=== PATIENT | male | born 1960 | race Caucasian/White ===

== ENCOUNTER → 2023-02-06 15:09 | Outpatient (BNVA) | payer OTHER, SELFPAY | PROVIDERS: PCP Internal Medicine; Visit Provider Urology | DX: N52.9 Male erectile dysfunction, unspecified (principal); E29.1 Testicular hypofunction; G47.33 Obstructive sleep apnea (adult) (pediatric); F43.10 Post-traumatic stress disorder, unspecified | CPT/HCPCS: 51798; 99202 ==

== ENCOUNTER 2023-03-20 15:20 | Outpatient (AMB) | payer OTHER, SELFPAY ==
--- NOTE | 2023-03-20 15:27 | A.OFFVIS_ITS ---
Intake Intake Visit Reasons: cysto Intake Note: Patient is present for Cystoscopy Urology Med: Finasteride, Sildenafil Antibiotic Allergy:none Blood Thinner: none Allergies No Known Allergies Allergy (Verified 03/20/23 15:44) HPI HPI Comments History of Present Illness Details Francisco is a 62-year-old male who presents to the office for cystoscopy procedure. LV?02/06/23-- Francisco is a 62-year-old male who presents to the office as a new patient evaluation for dysuria, difficulty urinating, and erectile dysfunction. He states that he has already been started on Proscar and tamsulosin for urinary symptoms, nocturia. CoMorbidities--Sleep Apnea, PTSD He was taking Viagra and has taken an injectable medication into the penile corpora for allowing him to achieve erections. I asked if the erections are lasting for more than 4 hours and he stated that it lasts for one hour. He was counselled if the erections are lasting for more than 4 hours then he needs to visit the ER. Evaluation today: Blood: negative, leukocytes: negative. Bladder scan PVR: 34 mL. I have reviewed consult notes sent from [place]. Bladder US--01/14/23-- Bladder wall thickening, irregular. prostate nodular median lobe abutting bladder neck. PSA results reviewed-- 2.62. Testosterone results reviewed--244.58 (low). Will redo a panel of blood work including testosterone levels and other hormones. The patient will follow-up with Dr. Anguiano for hypogonadism. Follow up with me for cysto and further evaluation of bladder. Plan:Blood work panel including LH, prolactin, testosterone free/total, FSH, was ordererd. Follow-up in [address] Anguiano for hypogonadism. Follow-up in 4- 6 weeks at the office for cysto. 03/20/23-- The patient is scheduled for cystoscopy bladder US from 01/14/23 there were findings of irregular bladder wall thickening. The patient denies history of cigarette smoking. The patient is adhering to tamsulosin and Proscar therapy. Mentions that he is emptying better. Evaluation today-- Blood: negative, leukocytes: negative. Cystoscopy findings-- trilobar enlargement with a high median lobe. Consideration for prostate procedure was discussed and he is going to be refereed to Dr. Anguiano for further evaluation for erectile dysfunction after getting repeat blood work as well as evaluation for GreenLight Laser. Plan: Referred to Dr Anguiano. Testosterone, Free/Total were ordered. [facility] Medical History Flat foot Hiatal hernia PTSD (post-traumatic stress disorder) Tinnitus Office Procedures Cystoscopy Consent Discussed risk and benefit or proposed procedure with the patient. Information consent for procedure given to the patient. Discussed technical aspects, risks, benefits and alternatives in full. Addressed all of the patient's questions and concerns regarding the procedure. The patient demonstrated knowledge and understanding. They wish to proceed with this procedure. Preparation The patient was prepped in the usual manner. A band saw operator was present and in the room. Genitalia was prepped with betadine solution in a sterile manner. Lidocaine Jelly 2% was placed into the urethra and 16Fr flexible Olympus cystoscope was inserted into the meatus after adequate lubrication. Procedure Time out per protocol performed. Bladder Inspection Bladder Inspection: The bladder was inspected in its entirety with utilization retroflexion displaying: Tumor(s): none Trabeculation: mild to moderate Mucosal Erthema: N/A Orifices: normal shape and position Urethra: normal Cystoscopy findings: trilobar enlargement with a high median lobe. bulbous u rethra WNL, no suspicious bladder lesions visualized [id number] Procedure code (CPT) selection complete Office Meds lidocaine HCl Performing Provider: Shell Rashid MD Administered by: Michelle Higgins RN on 03/20/23 15:47 Dose Route Admin Location Lot Number Expiration Date NDC Topography Technician 10 mL intra-urethral naproxen Performing Provider: Shell Rashid MD Administered by: Michelle Higgins RN on 03/20/23 15:47 Dose Route Admin Location Lot Number Expiration Date NDC Topography Technician 500 mg PO ciprofloxacin HCl Performing Provider: Shell Rashid MD Administered by: Michelle Higgins RN on 03/20/23 15:47 Dose Route Admin Location Lot Number Expiration Date NDC Topography Technician 500 mg PO Results AMB Urinalysis, Automated UA Leukoctes 0 Mendy/uL Last Edit by KIRAN Tejeda on 03/20/23 15:45 UA Nitrite Negative Last Edit by KIRAN Tejeda on 03/20/23 15:45 UA Urobilinogen 0.2 mg/dL Last Edit by Tash Dudley, RMA on 03/20/23 15:4 5 UA Protein 0 mg/dL Last Edit by Tash Dudley, RMA on 03/20/23 15:45 UA pH 5.5 Last Edit by Tash Dudley, RMA on 03/20/23 15:45 UA Blood 0 Felice/uL Last Edit by Tash Dudley, RMA on 03/20/23 15:45 UA Specific [place] 1.030 Last Edit by Tash Dudely, RMA on 03/20/23 15: 45 UA Ketone Negative Last Edit by Tash Dudley, RMA on 03/20/23 15:45 UA Bilirubin 0 mg/dL Last Edit by Tash Dudley, RMA on 03/20/23 15:45 UA Glucose 0 mg/dL Last Edit by Tash Dudley, RMA on 03/20/23 15:45 Results Reviewed Results Reviewed: Laboratory Last Values Urine pH (Auto) 5.5 03/20/23 15:38 Specific [place] (Auto) 1.030 03/20/23 15:38 Urine Protein (Auto) 0 mg/dL 03/20/23 15:38 Glucose (UA)(Auto) 0 mg/dL 03/20/23 15:38 Urine Ketones (Auto) Negative 03/20/23 15:38 Urine Blood (Auto) 0 Felice/uL 03/20/23 15:38 Urine Nitrite (Auto) Negative 03/20/23 15:38 Urine Bilirubin (Auto) 0 mg/dL 03/20/23 15:38 Urine Urobilinogen (Auto) 0.2 mg/dL 03/20/23 15:38 Leukocyte Esterase (Auto) 0 Mendy/uL 03/20/23 15:38 Assessment & Plan Assessment & Plan (1) Erectile dysfunction: Code(s): N52.9 - Male erectile dysfunction, unspecified (2) Hypogonadism, male: Code(s): E29.1 - Testicular hypofunction Plan Referred to Dr Anguiano. Testosterone, Free/Total were ordered. Orders: Orders Basic Metabolic Panel Fasting 03/20/23 E29.1 - Testicular hypofunction Testosterone, Free/Total 03/20/23 E29.1 - Testicular hypofunction, N52.9 - Male erectile dysfunction, unspecified, N40.1 - Benign prostatic hyperplasia with lower urinary tract symptoms Follicle Stimulating Hormone 03/20/23 E29.1 - Testicular hypofunction Lutenizing Hormone 03/20/23 E29.1 - Testicular hypofunction Prolactin 03/20/23 E29.1 - Testicular hypofunction AMB Cystoscopy 03/20/23 N32.89 - Other specified disorders of bladder AMB Urinalysis Automated 03/20/23 Z13.9 - Encounter for screening, unspecified Patient Instructions: The patient had an opportunity to ask questions regarding treatment plan. All questions were answered. Imaging, Laboratory studies and physical exam results were discussed and reviewed in detail. No major barriers to understanding were identified. The patient expressed understanding and agreement with the above t reatment plan. The patient is aware they should contact our office by phone for worsening of their current condition or the appearance of new symptoms. Compliance is encouraged with any medications and followup testing that is ordered. It is a privilege to be allowed the opportunity to participate in the urologic care of your patient. If you have any questions or concerns regarding treatment for the above conditions please do not hesitate to contact me. The office telephone contact is [phone]. This note is constructed in part using voice recognition software. While every effort has been made to ensure accuracy delivery representative errors may have been included. Yours sincerely, Shell Rashid MD Coding Level of Care Code Procedure Only Diagnoses Erectile dysfunction N52.9 Hypogonadism, male E29.1 CPT Codes Cystoscopy - CPT: 39462-Dmspqkutlk ([id number])
== END 2023-03-20 16:14 | disposition home or self-care (01) ==
LOC: HO.HUSH 15:20
PROVIDERS: PCP Internal Medicine; Visit Provider Urology
DX: R30.0 Dysuria (principal); R39.198 Other difficulties with micturition; E29.1 Testicular hypofunction
CPT/HCPCS: 52000

== ENCOUNTER → 2023-03-20 15:20 | Outpatient (BNVA) | payer OTHER, SELFPAY | PROVIDERS: PCP Internal Medicine; Visit Provider Urology | DX: N52.9 Male erectile dysfunction, unspecified (principal); E29.1 Testicular hypofunction | CPT/HCPCS: 52000 ==

== ENCOUNTER 2023-04-05 06:01 | Outpatient (REF) | payer OTHER, SELFPAY ==
[2023-04-05 08:14] LABS: Anion Gap 12 (12-20); Blood Urea Nitrogen 21 mg/dL (9-16); Calcium 9.7 mg/dL (8.4-10.2); Carbon Dioxide 27 mmol/L (22-29); Chloride 105 mmol/L (96-108); Estimated Glomerular Filt Rate > 60; Glucose Fasting 107 mg/dL (60-99); Potassium 4.3 mmol/L (3.3-5.1); Sodium 140 mmol/L (135-145)
[2023-04-06 14:09] LABS: Follicle Stimulating Hormone 7.1 mIU/mL (1.6-8.0); Prolactin 8.2 ng/mL (2.0-18.0)
[2023-04-12 14:23] LABS: Testosterone, Free 89.5 pg/mL (35.0-155.0); Testosterone, Total 484 ng/dL (250-1100)
== END 2023-04-05 06:02 | disposition home or self-care (01) ==
LOC: HO.LAB 06:01
PROVIDERS: Visit Provider Urology
DX: E29.1 Testicular hypofunction (principal); N40.1 Benign prostatic hyperplasia with lower urinary tract symptoms; N52.9 Male erectile dysfunction, unspecified
CPT/HCPCS: 36415; 80048; 83001; 83002; 84146; 84402; 84403

== ENCOUNTER → 2023-04-19 10:48 | Outpatient (BNVA) | payer OTHER, SELFPAY | PROVIDERS: PCP Internal Medicine; Visit Provider Urology | DX: N40.1 Benign prostatic hyperplasia with lower urinary tract symptoms (principal); E29.1 Testicular hypofunction | CPT/HCPCS: 51798; 99212 ==

== ENCOUNTER 2023-07-02 11:39 | Outpatient (AMB) | payer OTHER, SELFPAY ==
--- NOTE | 2023-07-02 11:40 | A.OFFVIS_ITS ---
Intake Intake Visit Reasons: H&P (greenlight 07/15/23) Intake Note: Patient is present for Telephone H&P Update upcoming [facility] 07[facility]15 Urology Med: Finasteride, Sildenafil, Tamsulosin Antibiotic Allergy: None Blood Thinner: None Pharmacy: [facility] Allergies No Known Allergies Allergy (Verified 07/02/23 11:43) HPI HPI Comments History of Present Illness Details Francisco is a pleasant male. He is a patient of Dr. Andre. 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 Prior low testosterone -04/19 484 F 88 Appears to have recovered Lower urinary tract symptoms Progressive Previously on combination therapy with Proscar and tamsulosin Weakness of stream 01/17 bladder ultrasound with bladder wall thickening Cystoscopy with trilobar enlargement in large median lobe Recommendation for GreenLight laser [facility] Medical History Flat foot Hiatal hernia PTSD (post-traumatic stress disorder) Tinnitus Review of Systems Const All systems reviewed & are unremarkable except as noted in HPI and below Reports no additional complaints Resp Reports no additional complaints GI Reports no additional complaints Reports as per HPI Musc Reports no additional complaints Physical Exam Telemedicine evaluation Appropriate responses Regular breathing rate and rhythm HEENT Head: Yes normal to inspection Ears: hearing grossly normal bilaterally Eyes General: appearance normal, both eyes and all related structures Neck Neck: Yes normal visual inspection Chest Chest palpation & inspection: normal inspection of the chest Resp Effort & Inspection: normal respiratory effort and able to speak in complete sentences Assessment & Plan Assessment & Plan (1) Erectile disorder: Code(s): N52.9 - Male erectile dysfunction, unspecified (2) BPH loc w urin obs/LUTS: Code(s): N40.1 - Benign prostatic hyperplasia with lower urinary tract symptoms Plan Planned GreenLight laser Risks, benefits and alternatives to therapy were discussed. These include but are not limited to infection, bleeding, damage to local organs and tissues, need for further interventions. Anesthetic risks regarding cardiac arrhythmia, blood clots, and potential mortality were discussed. The patient understands the typical recovery time and the outpatient nature of the procedure. After consideration of these risks the patient gives full informed consent and they wish to move ahead with the procedure. Patient Instructions: Imaging studies, laboratory and physical exam results were discussed and reviewed in detail. No major barriers to patient understanding were identified. An opportunity to ask questions regarding the treatment plan was provided. All questions were answered. The patient expressed understanding and agreement with the above treatment plan. The patient is aware they should contact our office by phone for worsening of their current condition or the appearance of new urologic symptoms. Compliance is encouraged with any medications and followup testing that is ordered. It is a privilege to participate in the urologic care of your patient. If you have any questions or concerns regarding treatment for the above conditions, or other urologic issues, please do not hesitate to contact me. The office telephone contact is [phone]. This note is constructed using voice recognition software. While every effort has been made to ensure accuracy swimming pool maintenance supervisor errors may have been included. Yours sincerely, Dr Andrea Anguiano MD, [facility] - Urology Providers of Expert, Compassionate Care for the Genitourinary System Telehealth Telehealth Location of provider rendering services: practice address Location of patient: address on file Patient Identification confirmed using: Name, : Yes Telehealth method: video Patient verbally consented to treatment: Yes Patient verbally consented to billing insurance company: Yes Patient informed of any privacy concerns related to visit: Yes Coding Level of Care Code Tele Est Pt Level 3 (60578) Diagnoses Erectile disorder N52.9 BPH loc w urin obs/LUTS N40.1
== END 2023-07-02 12:15 | disposition home or self-care (01) ==
LOC: HO.HUSH 11:39
PROVIDERS: PCP Internal Medicine; Visit Provider Urology
DX: N52.9 Male erectile dysfunction, unspecified (principal); N40.1 Benign prostatic hyperplasia with lower urinary tract symptoms
CPT/HCPCS: 99213

== ENCOUNTER → 2023-07-02 11:39 | Outpatient (BNVA) | payer OTHER, SELFPAY | PROVIDERS: PCP Internal Medicine; Visit Provider Urology ==

== ENCOUNTER 2023-07-15 07:03 | Day surgery (SDC) | payer OTHER, SELFPAY ==
[2023-07-15] VITALS (7 sets, daily range): BP systolic 121–140; BP diastolic 81–92; PULSE 58–81; RESP 16–18; TEMP 36.1–36.3; O2SAT 95–98; BMI 25.1
[2023-07-15] MEDS: Lactated Ringers 1,000 ML 100 ML IVCONT (08:25)
--- NOTE | 2023-07-15 08:45 | HO.ANESPROP2 ---
HPI - Anesthesia Eval Consult details Narrative: for laser prostate PMFSH Active Problems Active Problems: All Active Problems (Updated 07/10/23 @ 13:48 by Milly Cardona RN) BPH loc w urin obs/LUTS (Acute) Hypogonadism, male (Acute) Erectile disorder (Acute) Past Medical History Medical History Elevated cholesterol Anemia Sleep apnea Low back pain Asthma GERD (gastroesophageal reflux disease) BPH (benign prostatic hyperplasia) Tinnitus Hiatal hernia Flat foot PTSD (post-traumatic stress disorder) Family History Family history of problems with anesthesia: No Surgical History Surgical History Surgical history unknown History of Problems with Anesthesia: No Social History Social History Are you a primary healthcare consultant to a significant other at home: No Do you presently have visiting nurse or other home services: No Patient Tobacco Use Status: Never used Tobacco Have you been hit, kicked, punched, or otherwise hurt by someone within the past year? If so, by whom?: No Are you DNR?: No Advance Directives: No Advance Directives Information Provided: Yes Recently lost weight without trying: No Eating poorly because of decreased appetite: No Nutrition Risks: No Nutritional Risk Poor oral hygiene: No Meds Allergies Allergy/AdvReac Type Severity Reaction Status Date / Time No Known Allergies Allergy Verified 07/02/23 11:43 Active Medications: Current Medications Levofloxacin (Levaquin) 500 mg in 100 mls @ 100 mls/hr IV PREOP ONE Stop: 07/15/23 08:49 Lactated Ringer's (Lr) 1,000 mls @ 100 mls/hr IVCONT .Q10H LETI Last Admin: 07/15/23 08:25 Dose: 100 mls/hr Home Medications Medication Instructions Recorded Confirmed Last Taken Type albuterol sulfate 90 mcg/actuation 1 inh inhalation Q4H PRN Shortness 01/21/23 07/10/23 Unknown History aerosol inhaler Of Breath Or Wheezing polyethylene glycol 3350 17 17 g PO DAILY 01/21/23 Unknown History gram/dose oral powder alprostadil 20 mcg intracavernosal 20 mcg intra-cavernosal ONCE PRN 02/06/23 07/10/23 Unknown History syringe erectile dysfunction carboxymethylcellulose sodium 0.5 1 drp ophthalmic (eye) QID 02/06/23 07/10/23 Unknown History % eye drops in a dropperette ezetimibe 10 mg tablet 10 mg PO DAILY 02/06/23 07/10/23 Unknown History finasteride 5 mg tablet 5 mg PO DAILY 02/06/23 07/10/23 Unknown History fluticasone propionate 50 2 spray intranasal DAILY 02/06/23 07/10/23 Unknown History mcg/actuation nasal spray,suspension (Allergy Relief (fluticasone)) lisinopril 20 2 tab PO DAILY 02/06/23 07/10/23 Unknown History mg-hydrochlorothiazide 12.5 mg tablet omeprazole 20 mg capsule,delayed 20 mg PO DAILY 02/06/23 07/10/23 Unknown History release sildenafil 100 mg tablet 100 mg PO DAILY PRN Erectile 02/06/23 07/10/23 Unknown History Dysfunction tamsulosin 0.4 mg capsule 0.4 mg PO DAILY 02/06/23 Unknown History Exam Exam Date and Time: July 15, 2023 0845 Height,Weight and Vital Signs: Height 5 ft 7 in Weight 72.575 kg Last Vital Signs Temp 96.9 F 07/15/23 08:16 Pulse 71 07/15/23 08:16 Resp 18 07/15/23 08:16 BP 121/81 07/15/23 08:16 Pulse Ox 98 07/15/23 08:16 O2 Del Method Room Air 07/15/23 08:16 Airway Mallampati Class: I TM Dist: >3cm Neck ROM: Full Loose/Missing/Broken Teeth: No Heart: ok Lungs: ok Assessment and Plan Assessment Anesthesia Assessment: Anesthesia Plan Discussed and Chart Reviewed Final Anesthetic Review Family History of Problems with Anesthesia: No History of Problems with Anesthesia: No NPO: Yes ASA Class: II Final Preanesthetic Review: No Changes in Pt Med Stat, Meds/Allgs Chart Reviewed, Consent Obtained/Reviewed and Anes Risks/Benef Reviewed Patient Risk: Intermediate Procedure Risk: Low Anesthetic Plan Anesthetic Plan: GA and Agree w/ Assess. and Plan Disposition: Standard PACU
--- NOTE | 2023-07-15 08:48 | MHC.SHP ---
Pre-Procedural Eval Section A Date of Service: 07/15/23 The patient is an INPATIENT: No Changes since office visit: No Cold of Flu in the past 2 weeks, No New Medical Problems, No Changes in Medication and No Patient answered all questions The History & Physical has been completed within 30 days and I have reviewed it.: Yes Section B Chief Complaint: Benign prostatic hyperplasia with lower urinary Allergies: Allergies Allergy/AdvReac Type Severity Reaction Status Date / Time No Known Allergies Allergy Verified 07/02/23 11:43 Plan I have reviewed the history and physical and performed a pertinent physical examination on my patient. No changes have occurred unless specified. Time Spent With Patient Time: Total time managing care of this patient today ____ minutes.
--- NOTE | 2023-07-15 10:06 | P.OP_ITS ---
Operative Note Operative Note Date of Service: 07/15/23 Narrative: PreOperative Diagnosis: Bladder outlet obstruction Post Operative Diagnosis: Bladder outlet obstruction Procedure: GreenLight Laser Enucleation of the prostate Surgeon: Dr Andrea Anguiano Anesthesia: General History of bladder outlet obstruction. Treated with alpha-tiff and other medications. Still with symptoms. On cystoscopy in office has trilobar prostate. Recommendation for prostate procedure with laser enucleation of prostate. Risks and benefits have been discussed. Focus was placed on development of retrograde ejaculation which is a normal part of this procedure. Procedure: After informed consent was verified the patient was brought to the operating room and placed in a supine position. Anesthesia was administered per protocol. Patient was placed in modified dorsal lithotomy position and prepped and draped in a sterile fashion. Safety pause time-out was confirmed. Antibiotics have been given. A Twenty-four Ukrainian laser cystoscope was inserted per urethra. No abnormalities were found of the anterior and bulbar urethra. The bladder was examined and both ureteric orifices were seen in their normal positions away from the area of interest. Using a GreenLight laser with settings of 80 w incisions were made at the 5 and 7 o'clock position. The incisions were taken down from the bladder neck down to the level of the veru. These were gradually deepened in order to define the lateral aspects of the median lobe area. Once clearly defined they will also extended in the lateral directions in order to create a deep groove. The median lobe was then ablated and enucleated tissue released into the bladder with the laser power increased to 120 W. Once the median lobe area had been cleared attention was directed to the lateral lobes. Starting with the patient's left lateral lobe. First the 05:00 o'clock groove was further developed. This was moved in the lateral direction to undermine the tissue on the lateral side running from the bladder neck to the prostate apex. Focus was then placed on the laser at the 1 o'clock position to developing a secondary groove down to the level of bladder fibers. The creation of a second deep groove defined a segment of intervening tissue similar to a slice of orange. At the apex of the prostate the 2 grooves were linked the us releasing the intervening tissue. This tissue was then removed with a combination of enucleation and ablation working from the apex toward the bladder neck. A similar procedure was repeated on the patient's right-hand side. The only differences being the position of the lateral groove at he 7 'oclock positioin and the secondary groove at the 11 o'clock position, Otherwise the procedure was developed in a mirror fashion. After the majority of tissue had been debulked remnant tissue was ablated with the side fire laser and the curve of the prostate followed up each side wall clearly defining the anterior remnant strip that remained between the 11 and 1 o'clock positions. When this was had been completed debris and pieces of prostate were removed from the bladder with irrigation. Both ureteric orifices were reviewed again in shown to be patent in away from any areas of energy damage. The apical area was reviewed in any stray ooze was controlled. A 22 Ukrainian 30 cc balloon Ley catheter was placed over a stylet into the bladder. Clear efflux was obtained upopn irrigation with a [place] piston syr raquel. 30 cc was placed in the balloon and gentle traction was placed. A snap was used to hold tension on the catheter to control bleeding during patient moved and transported. A drainage bag was placed. Once transportation is complete to the PACU the snap will be removed. The patient tolerated the procedure well, he was extubated in the operating and transferred in a stable condition to the recovery area. Total Power 136 kW Lasing time 22:14 Pathology: Prostate tissue Drains: Ley catheter
[2023-07-15] MEDS: Acetaminophen 325 MG TABLET 975 MG PO (10:22)
== END 2023-07-15 11:32 | disposition home or self-care (01) ==
PROVIDERS: Visit Provider Urology
PROC: (CPT 52648; principal; 2023-07-15 09:10)
DX: N40.1 Benign prostatic hyperplasia with lower urinary tract symptoms (principal); N52.9 Male erectile dysfunction, unspecified; D64.9 Anemia, unspecified; J45.909 Unspecified asthma, uncomplicated; E78.5 Hyperlipidemia, unspecified; K21.9 Gastro-esophageal reflux disease without esophagitis; G47.30 Sleep apnea, unspecified; Z79.899 Other long term (current) drug therapy
CPT/HCPCS: 52649; 88305; J1956; J3010

== ENCOUNTER → 2023-07-15 07:03 | Outpatient (BNV) | payer OTHER, SELFPAY | PROVIDERS: Visit Provider Urology | DX: N32.0 Bladder-neck obstruction (principal) | CPT/HCPCS: 52649 ==

== ENCOUNTER 2023-07-18 09:17 | Outpatient (AMB) | payer OTHER, SELFPAY ==
--- NOTE | 2023-07-18 09:41 | AM.OFFVISNUR ---
Intake Intake Visit Reasons: Voiding trial (greenlight) Allergies No Known Allergies Allergy (Verified 07/02/23 11:43) Office Procedures Bladder/Catheter Procedure Details: pt presents to office for voiding trial s/p greenlight laser prostatectomy. 60 mls sterile water instilled into bladder (pt having bladder spasms during instillation of fluid, unable to instill all 120 mls), 22 fr cath removed, pt tolerated removal well. bladder scanned for 0 mls. advised increased fluid intake today, call office by 2 pm if unable or having difficulty urinating, pt agreeable. [address] Latham [id number] of Bladder Procedure code (CPT) selection complete Post Void Residual Post Residual Void Post Void Residual (PVR): 0 [id number]-Oyge Void Residual by ultrasound Coding CPT Codes Bladder/Catheter Procedure - CPT: 54720-Ipjoojhezv of Bladder ([id number]) Post Residual Void - PVR CPT Code: 62832-Bhdo Void Residual by ultrasound ([id number]) Assessment & Plan Assessment & Plan Orders: Orders AMB Bladder/Catheter Procedure Today N40.1 - Benign prostatic hyperplasia with lower urinary tract symptoms AMB Post Void Residual by ultrasound Today N40.1 - Benign prostatic hyperplasia with lower urinary tract symptoms
== END 2023-07-18 10:17 | disposition home or self-care (01) ==
PROVIDERS: PCP Internal Medicine; Visit Provider Urology
DX: N40.1 Benign prostatic hyperplasia with lower urinary tract symptoms (principal)

== ENCOUNTER → 2023-07-18 09:17 | Outpatient (BNVA) | payer OTHER, SELFPAY | PROVIDERS: PCP Internal Medicine; Visit Provider Urology | DX: N40.0 Benign prostatic hyperplasia without lower urinary tract symptoms (principal); Z98.890 Other specified postprocedural states | CPT/HCPCS: 51700; 51798 ==

== ENCOUNTER 2023-08-30 08:49 | Outpatient (AMB) | payer OTHER, SELFPAY ==
--- NOTE | 2023-08-30 08:54 | MHC.OFFVIS ---
Intake Intake Visit Reasons: 6w/greenlight post-op Intake Note: Patient is Present for Follow Up POST OP Urology Medication: Finasteride, Tamsulosin , Tamsulosin Antibiotic Allergies: None Blood Thinners: none Pharmacy: [facility] PVR: 13 Compliants: Patient states that Finasteride is causing him to urinate alot more than usual. States that he stopped due to how many times it causes him to go to bathroom during work. Allergies No Known Allergies Allergy (Verified 08/30/23 08:59) HPI HPI Comments History of Present Illness Details Francisco is a pleasant male. He is a patient of Dr. Andre. 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 Hypogonadism Prior low testosterone -04/19 484 F 88 Appears to have recovered Lower urinary tract symptoms Progressive Previously on combination therapy with Proscar and tamsulosin Weakness of stream 01/17 bladder ultrasound with bladder wall thickening Cystoscopy with trilobar enlargement in large median lobe 07/20 [facility] Medical History (Updated 08/30/23 @ 09:25 by Andrea Anguiano MD) Elevated cholesterol Anemia Sleep apnea Low back pain Asthma GERD (gastroesophageal reflux disease) BPH (benign prostatic hyperplasia) Tinnitus Hiatal hernia Flat foot PTSD (post-traumatic stress disorder) Surgical History Surgical history unknown Social History Are you a primary doggy daycare activities director to a significant other at home: No Do you presently have visiting nurse or other home services: No Patient Tobacco Use Status: Never used Tobacco Review of Systems Const Denies chills and Denies fever(s) Card Reports no additional complaints and Denies syncope Resp Denies cough GI Denies abdominal pain and Denies heartburn Reports as per HPI and Denies change in libido Neuro Denies syncope Psych Denies change in libido Endo Denies change in libido Physical Exam Const General: cooperative, healthy appearing, comfortable and no acute distress Orientation/consciousness: patient oriented x3 HEENT Face and sinus: Yes normal facial exam Mouth: moist mucous membranes Neck Neck: Yes normal visual inspection, Yes full ROM and Yes trachea midline Chest Chest palpation & inspection: normal inspection of the chest Resp Effort & Inspection: normal respiratory effort, able to speak in complete sentences and no respiratory distress GI Inspection: Yes normal to inspection Back/Spine/Pelvis Cervical Spine: normal cervical lordosis Thoracic/Lumbar Spine: thoracic and lumbar spine normal to inspection Skin General skin exam: no rashes or lesions noted Neuro General: patient oriented x3, gait normal, tone normal and moves all extremities Extrem General: Yes normal to inspection and Yes capillary refill normal Office Procedures Post Void Residual Post Residual Void Post Void Residual (PVR): 13 05776-Xczc Void Residual by ultrasound Assessment & Plan Assessment & Plan (1) Overactive bladder: Code(s): N32.81 - Overactive bladder Plan Six week follow-up PVR Orders: Orders AMB Post Void Residual by ultrasound Today N40.1 - Benign prostatic hyperplasia with lower urinary tract symptoms Medications: New oxybutynin chloride ER 5 mg PO DAILY 90 days 90 tabs 1RF N32.81 - Overactive bladder Patient Instructions: Imaging studies, laboratory and physical exam results were discussed and reviewed in detail. No major barriers to patient understanding were identified. An opportunity to ask questions regarding the treatment plan was provided. All questions were answered. The patient expressed understanding and agreement with the above treatment plan. The patient is aware they should contact our office by phone for worsening of their current condition or the appearance of new urologic symptoms. Compliance is encouraged with any medications and followup testing that is ordered. It is a privilege to participate in the urologic care of your patient. If you have any questions or concerns regarding treatment for the above conditions, or other urologic issues, please do not hesitate to contact me. The office telephone contact is [phone]. This note is constructed using voice recognition software. While every effort has been made to ensure accuracy metallic yarn slitting machine operator errors may have been included. Yours sincerely, Dr Andrea Anguiano MD, DOC [facility] - Urology Providers of Expert, Compassionate Care for the Genitourinary System Coding Level of Care Code Est Pt Level 4 (47092) Diagnoses Overactive bladder N32.81 CPT Codes Post Residual Void - PVR CPT Code: 08875-Zjpm Void Residual by ultrasound ([id number])
== END 2023-08-30 09:27 | disposition home or self-care (01) ==
PROVIDERS: PCP Internal Medicine; Visit Provider Urology
DX: N32.81 Overactive bladder (principal)
CPT/HCPCS: 99024

== ENCOUNTER → 2023-08-30 08:49 | Outpatient (BNVA) | payer OTHER, SELFPAY | PROVIDERS: PCP Internal Medicine; Visit Provider Urology | DX: N32.81 Overactive bladder (principal) | CPT/HCPCS: 51798; 99212 ==

== ENCOUNTER 2023-10-09 08:41 | Outpatient (AMB) | payer OTHER, SELFPAY ==
--- NOTE | 2023-10-09 08:57 | MHC.OFFVIS ---
Intake Intake Visit Reasons: 6w follow up Intake Note: Patient is Present for Follow Up Urology Medication: Finasteride, Oxybutynin,tamsulosin, sildenafil Antibiotic Allergies:none Blood Thinners: none PVR: 30 Patient is not sure if he is taking all prescribed urology medications Allergies No Known Allergies Allergy (Verified 08/30/23 08:59) HPI HPI Comments History of Present Illness Details Francisco is a pleasant male. He is a patient of Dr. Andre. 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 Erectile dysfunction Good response to 20 mcg caverjet alprostadil injection Prescription provided Hypogonadism Prior low testosterone -04/19 484 F 88 Appears to have recovered Lower urinary tract symptoms Progressive Previously on combination therapy with Proscar and tamsulosin Weakness of stream 01/17 bladder ultrasound with bladder wall thickening Cystoscopy with trilobar enlargement in large median lobe 07/20 [facility] Medical History (Updated 08/30/23 @ 09:25 by Andrea Anguiano MD) Elevated cholesterol Anemia Sleep apnea Low back pain Asthma GERD (gastroesophageal reflux disease) BPH (benign prostatic hyperplasia) Tinnitus Hiatal hernia Flat foot PTSD (post-traumatic stress disorder) Surgical History Surgical history unknown Social History Are you a primary health care specialist to a significant other at home: No Do you presently have visiting nurse or other home services: No Patient Tobacco Use Status: Never used Tobacco Review of Systems Const Denies chills and Denies fever(s) Card Reports no additional complaints and Denies syncope Resp Denies cough GI Denies abdominal pain and Denies heartburn Reports as per HPI and Denies change in libido Neuro Denies syncope Psych Denies change in libido Endo Denies change in libido Physical Exam Const General: cooperative, healthy appearing, comfortable and no acute distress Orientation/consciousness: patient oriented x3 HEENT Face and sinus: Yes normal facial exam Mouth: moist mucous membranes Neck Neck: Yes normal visual inspection, Yes full ROM and Yes trachea midline Chest Chest palpation & inspection: normal inspection of the chest Resp Effort & Inspection: normal respiratory effort, able to speak in complete sentences and no respiratory distress GI Inspection: Yes normal to inspection Back/Spine/Pelvis Cervical Spine: normal cervical lordosis Thoracic/Lumbar Spine: thoracic and lumbar spine normal to inspection Skin General skin exam: no rashes or lesions noted Neuro General: patient oriented x3, gait normal, tone normal and moves all extremities Extrem General: Yes normal to inspection and Yes capillary refill normal Office Procedures Post Void Residual Post Residual Void Post Void Residual (PVR): 30 49255-Ybjx Void Residual by ultrasound Assessment & Plan Assessment & Plan (1) Hypogonadism, male: Code(s): E29.1 - Testicular hypofunction (2) Erectile disorder: Code(s): N52.9 - Male erectile dysfunction, unspecified Plan Six month follow-up PSA Orders: Orders AMB Post Void Residual by ultrasound Today N32.81 - Overactive bladder Prostate Specific Antigen 6 Months N40.1 - Benign prostatic hyperplasia with lower urinary tract symptoms Medications: New Caverject Impulse (alprostadil) 20 mcg intra-cavernosal ONCE PRN 2 ea 6RF erectile dysfunction 28 days NS N52.9 - Male erectile dysfunction, unspecified Patient Instructions: Imaging studies, laboratory and physical exam results were discussed and reviewed in detail. No major barriers to patient understanding were identified. An opportunity to ask questions regarding the treatment plan was provided. All questions were answered. The patient expressed understanding and agreement with the above treatment plan. The patient is aware they should contact our office by phone for worsening of their current condition or the appearance of new urologic symptoms. Compliance is encouraged with any medications and followup testing that is ordered. It is a privilege to participate in the urologic care of your patient. If you have any questions or concerns regarding treatment for the above conditions, or other urologic issues, please do not hesitate to contact me. The office telephone contact is [phone]. This note is constructed using voice recognition software. While every effort has been made to ensure accuracy moisture conditioner operator errors may have been included. Yours sincerely, Dr Andrea Anguiano MD, DOC [facility] - Urology Providers of Expert, Compassionate Care for the Genitourinary System Coding Level of Care Code Est Pt Level 4 (30243) Diagnoses Hypogonadism, male E29.1 Erectile disorder N52.9 CPT Codes Post Residual Void - PVR CPT Code: 97725-Vyji Void Residual by ultrasound ([id number])
== END 2023-10-09 09:27 | disposition home or self-care (01) ==
PROVIDERS: PCP Internal Medicine; Visit Provider Urology
DX: E29.1 Testicular hypofunction (principal); N52.9 Male erectile dysfunction, unspecified
CPT/HCPCS: 99024

== ENCOUNTER → 2023-10-09 08:41 | Outpatient (BNVA) | payer OTHER, SELFPAY | PROVIDERS: PCP Internal Medicine; Visit Provider Urology | DX: E29.1 Testicular hypofunction (principal); N52.9 Male erectile dysfunction, unspecified | CPT/HCPCS: 51798; 99212 ==

== ENCOUNTER 2024-04-03 06:45 | Outpatient (REF) | payer OTHER, SELFPAY ==
[2024-04-03 07:40] LABS: Prostate Specific Antigen 1.86 ng/mL (<0.05-4.0)
== END 2024-04-03 06:46 | disposition home or self-care (01) ==
LOC: HO.LAB 06:45
PROVIDERS: Visit Provider Urology
DX: N40.1 Benign prostatic hyperplasia with lower urinary tract symptoms (principal); Z12.5 Encounter for screening for malignant neoplasm of prostate
CPT/HCPCS: 36415; 84153

== ENCOUNTER 2024-04-10 08:35 | Outpatient (AMB) | payer OTHER, SELFPAY ==
--- NOTE | 2024-04-10 08:58 | MHC.OFFVIS ---
Intake Visit Reasons: 6M PSA(set) Intake Note: Patient is Present for Follow Up PSA Urology Medication: Edex Injections Antibiotic Allergies:None Blood Thinners: None Patient is requesting refill on Edex injections. Patient is happy with his voiding states he is doing a lot better. He has stopped Oxybutynin, Finasteride, Tamsulsoin Allergies No Known Allergies Allergy (Verified 04/10/24 09:00) HPI Comments Details: Francisco is a pleasant male. He is a patient of Dr. Andre. 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 Yearly follow-up Erectile dysfunction Good response to 20 mcg caverjet alprostadil injection Prescription provided Hypogonadism Prior low testosterone -04/19 484 F 88 Appears to have recovered Lower urinary tract symptoms Progressive Previously on combination therapy with Proscar and tamsulosin Weakness of stream 01/17 bladder ultrasound with bladder wall thickening Cystoscopy with trilobar enlargement in large median lobe 07/20 [facility] Medical History Elevated cholesterol Anemia Sleep apnea Low back pain Asthma GERD (gastroesophageal reflux disease) BPH (benign prostatic hyperplasia) Tinnitus Hiatal hernia Flat foot PTSD (post-traumatic stress disorder) Surgical History Surgical history unknown Social History Are you a primary care aide to a significant other at home: No Do you presently have visiting nurse or other home services: No Patient Tobacco Use Status: Never used Tobacco Review of Systems Const Denies chills and Denies fever(s) Card Reports no additional complaints and Denies syncope Resp Denies cough GI Denies abdominal pain and Denies heartburn Reports as per HPI and Denies change in libido Neuro Denies syncope Psych Denies change in libido Endo Denies change in libido Physical Exam Const General: cooperative, healthy appearing, comfortable and no acute distress Orientation/consciousness: patient oriented x3 HEENT Face and sinus: Yes normal facial exam Mouth: moist mucous membranes Neck Neck: Yes normal visual inspection, Yes full ROM and Yes trachea midline Chest Chest palpation & inspection: normal inspection of the chest Resp Effort & Inspection: normal respiratory effort, able to speak in complete sentences and no respiratory distress GI Inspection: Yes normal to inspection Back/Spine/Pelvis Cervical Spine: normal cervical lordosis Thoracic/Lumbar Spine: thoracic and lumbar spine normal to inspection Skin General skin exam: no rashes or lesions noted Neuro General: patient oriented x3, gait normal, tone normal and moves all extremities Extrem General: Yes normal to inspection and Yes capillary refill normal Assessment & Plan Assessment & Plan (1) Overactive bladder: Code(s): N32.81 - Overactive bladder Category: Medical (2) BPH loc w urin obs/LUTS: Code(s): N40.1 - Benign prostatic hyperplasia with lower urinary tract symptoms Category: Medical Plan Refill edex Twelve month follow-up Orders: Orders Prostate Specific Antigen 364 Days N40.1 - Benign prostatic hyperplasia with lower urinary tract symptoms Medications: Refilled Caverject Impulse (alprostadil) 20 mcg intra-cavernosal ONCE 28 days PRN 2 ea 6RF erectile dysfunction NS N52.9 - Male erectile dysfunction, unspecified Caverject Impulse (alprostadil) 20 mcg intra-cavernosal ONCE 28 days PRN 2 ea 6RF erectile dysfunction NS N52.9 - Male erectile dysfunction, unspecified Caverject Impulse (alprostadil) 20 mcg intra-cavernosal ONCE 28 days PRN 2 ea 6RF erectile dysfunction NS N52.9 - Male erectile dysfunction, unspecified Caverject Impulse (alprostadil) 20 mcg intra-cavernosal ONCE 28 days PRN 2 ea 6RF erectile dysfunction NS N52.9 - Male erectile dysfunction, unspecified Patient Instructions: Imaging studies, laboratory and physical exam results were discussed and reviewed in detail. No major barriers to patient understanding were identified. An opportunity to ask questions regarding the treatment plan was provided. All questions were answered. The patient expressed understanding and agreement with the above treatment plan. The patient is aware they should contact our office by phone for worsening of their current condition or the appearance of new urologic symptoms. Compliance is encouraged with any medications and followup testing that is ordered. It is a privilege to participate in the urologic care of your patient. If you have any questions or concerns regarding treatment for the above conditions, or other urologic issues, please do not hesitate to contact me. The office telephone contact is [phone]. This note is constructed using voice recognition software. While every effort has been made to ensure accuracy video game creator errors may have been included. Yours sincerely, Dr Andrea Anguiano MD, DOC [facility] - Urology Providers of Expert, Compassionate Care for the Genitourinary System Coding Level of Care Code Est Pt Level 4 (63197) Diagnoses Overactive bladder N32.81 BPH loc w urin obs/LUTS N40.1
== END 2024-04-10 09:40 | disposition home or self-care (01) ==
PROVIDERS: PCP Internal Medicine; Visit Provider Urology
DX: N32.81 Overactive bladder (principal); N40.1 Benign prostatic hyperplasia with lower urinary tract symptoms
CPT/HCPCS: 99213

== ENCOUNTER → 2024-04-10 08:35 | Outpatient (BNVA) | payer OTHER, SELFPAY | PROVIDERS: PCP Internal Medicine; Visit Provider Urology | DX: N32.81 Overactive bladder (principal); N40.1 Benign prostatic hyperplasia with lower urinary tract symptoms; N13.8 Other obstructive and reflux uropathy; N52.9 Male erectile dysfunction, unspecified | CPT/HCPCS: 99212 ==

== ENCOUNTER 2025-04-27 08:01 | Outpatient (REF) | payer OTHER, SELFPAY ==
--- OUTSIDE RECORDS SUMMARY | 2024-06-03 05:21 | XMS_ITS | Encounter Summary ---
Author Name [facility] [place] [facility] [place] Address [address] [place] [address] Care Team Providers Care Stroke Coordinator Name Role Phone ANA M DIAZ Primary Care Provider Unavail able Insurance Providers: All historical and current Section Date Range: From patient's date of to the date document was created. This section includes the names of all active insurance providers for the patient. Insurance Provider Type of Coverage Plan Name Start of Policy Coverage End of Policy Coverage Group Number Member ID Insurance Provider's Telephone Number Policy Schuster's Name Patient's Relationship to Policy Schuster [employer] ION [id number] Jun 28, 2018 [id number] [place],[employer] [place] PATIENT MEDICARE (WNR) MEDICARE (M) PART B Nov 28, 2023 PART B [id number] [phone] [place] [place] PATIENT MEDICARE (WNR) MEDICARE (M) PART A May 28, 2023 PART A [id number] [place] [place] PATIENT FOR LIFE TFL* Nov 28, 2023 [id number] [place],[employer] [place] PATIENT [facility] Jun 28, 2018 [facility] [id number] [place],[employer] [place] PATIENT ON LICENSE OF [facility] Jun 28, 2018 [facility] [id number] [place],[employer] [place] PATIENT ON LICENSE OF [facility] Jun 28, 2018 [facility] [id number] [place],[employer] [place] PATIENT Selected Encounter This section includes the information on record at [place] for the Encounter. Date/Time Encounter Type Encounter Description Reason Pro vider Source Jun 03, 2024 09:21 AM Outpatient Encounter ADMIN PAT ACTIVTIES (MASNONCT) IHE Encounter Template Text not used by [place] Plan of Treatment: Future Appointments (+ 6 months) and Future Tests (+/- 45 days) The Plan of Treatment section includes future care activities for the patient from [facility] [place] [facility] This section includes future appointments and future orders which are active, pending or scheduled. Future Appointments This section includes appointments that were scheduled to occur 6 months from the date of the Encounter, up to a maximum of 20 appointments. The data comes from all [place] treatment facilities. Appointment Date/Time Appointment Type Appointme nt Facility Name Jun 11, 2024 03:30 PM AMBULATORY - MEDICINE [facility] Aug 03, 2024 08:00 AM AMBUL[facility]ORY - MEDICINE [facility] Aug 31, 2024 02:00 PM AMBULATORY - MEDICINE [facility] Lab Results: +/- 30 days of the encounter This section includes the Chemistry and Hematology Lab Results on record with [place] for the patient. Radiology Reports and Pathology Reports are provided separately, in subsequent sections. Lab Results This section contains the Chemistry/Hematology Results that were resulted 30 days before or 30 daysafter the date of the Encounter. Date/Time Source Result Type Result - Unit Interpretation Reference Range Specimen Type Comment Jun 08, 2024 07:46 AM [facility] LIPID PANEL FASTING SERUM Specimen Ty pe: SERUM No comment entered. Ordering Provider: JAYME CANCHOLA Report Released Date/Time: Feb 20, 2024 04:08 PM Reporting Lab: [address] [address] Performing Lab: [address] [address] CHOLESTEROL 197 mg/dL TRIGLYCERIDE 124 mg/dL 0-150 LDL calculated 133 mg/dL H 0-129 CHOL/HDL 5.1 HDL CHOLESTEROL 39 mg/dL L 40-60 Jun 08, 2024 07:46 AM [facility] BASIC METABOLIC PANEL (fasting) SERUM Specimen Type: SERUM No comment entered. Ordering Provider: JAYME CANCHOLA Report Released Date/Time: Feb 20, 2024 04:08 PM Reporting Lab: [facility] [address] [facility] [address] Performing Lab: [facility] [address] [facility] [address] UREA NITROGEN 20 mg/dL 7-25 GLUCOSE 109 mg/dL H 65-100 SODIUM 138 mmol/L 135-145 POTASSIUM 3.8 mmol/L 3.5-5.0 CHLORIDE 106 mmol/L 100-110 CO2 24 meq/L 20-30 CREATININE, Serum 0.82 mg/dL 0.50-1.40 eGFR(CKD-EPI 2020) >90 mL/min >60 Social History: Smoking Status (Most current) and Tobacco Use (All prior to encounter date) This section includes the most current, and the historical, smoking and tobacco- related health factors from the [place] facility where the Encounter took place. Current Smoking Status This section includes the most current smoking, or tobacco-related health factor, from the [place] facility where the Encounter took place. Date/Time Current Smoking Status Comment Mac rose March 20, 2023 09:00 AM [place]-TOBAC[place] NEVER USED [facility] Tobacco Use History This section includes a history of the smoking, or tobacco-related health factors, that were collected on or before the date of the Encounter. The data comes from the [place] facility where the Encounter took place. Date/Time Smoking Status/Tobacco Use Comment F emilia March 09, 2022 09:45 AM [place]-TOBACCO NEVER USED [facility] Feb 08, 2021 07:52 AM VATOBACCO NEVER USED [facility] Encounter Notes: All associated encounter notes This section contains the clinical notes associated to the Encounter. Date/Time Encounter Note(s) Provider Source Jun 03, 2024 09:21 AM PHARMACY NOTE: LOCAL TITLE: V1 PHARMACY CUSTOMER CARE MEDICATION RENEWAL STANDARD TITLE: PHARMACY NOTE DATE OF NOTE: JUN 03, 2024@09:21 ENTRY DATE: JUN 03, 2024@09:21:16 AUTHOR: CHUY FELDER I EXP COSIGNER: URGENCY: STATUS: COMPLETED Date: May Division: [facility] referred by Pharmacy Call Center for medication renewal: Non-controlled/maintenanc e medication Medications requested: [id number] ALBUTEROL 90MCG (CFC-F) 200D ORAL INHL [id number] FLUTICASONE PROP 50MCG 120D Defer to primary care provider To be mailed . Please review and renew if appropriate. *This note was generated by [facility] Pharmacy Customer Care. If you have any questions or need assistance, do not contact this author. Please refer all questions to your local, on-site pharmacy departments. /chava/ Chuy Felder CPhT Mainframe Developer, [place]/Pharmacy Customer Care Signed: 06/03/2024 09:21 Receipt Acknowledged By: 06/03/2024 10:27 /es/ PEBBLES BARROSN RN-BC REGISTERED NURSE 06/04/2024 17:06 /chava/ JAYME CANCHOLA MD PRIMARY CARE PHYSICIAN [facility]ELDER [facility] [place] [facility]
--- OUTSIDE RECORDS SUMMARY | 2025-04-27 08:06 | XMS_ITS | Clinical Summary ---
Author Organization [facility] Address [address] [place] [address] Phone Care Team Providers Care Department Head Name Role Phone Rashard Meraz MD Primary Care Provider Unavaila ble Allergies No known active allergies Medications No known medications Active Problems No known active problems Medical History Medical History Date Comments Hyperlipidemia 12/15/2021 DX:Hyperlipidemi a Hypertension 12/15/2021 DX:Hypertension Inhibited sex excitement 12/15/2021 DX:Inhi bited sex excitement Lumbago 12/15/2021 DX:Lumbago PTSD (post-traumatic stress disorder) 12/15/2021 DX:PTSD (post-traumatic stress disorder) Dyskinesia of esophagus 12/15/2021 DX:Dyski nesia of esophagus Sleep apnea 12/15/2021 DX:Sleep apnea Erectile dysfunction 12/15/2021 DX:Erectile dysfunction Dyspnea 12/15/2021 DX:Dyspnea Social History Tobacco Use Types Packs/Day Years Used Date Smoking Tobacco: Never Smokeless Tobacco: Never Tobacco Cessation:Counseling Given: Not Answered Alcohol Use Standard Drinks/Week Comments Yes 0 (1 standard drink = 0.6 oz pur e alcohol) Sex and Gender Information Value Date Recorded Sex Assigned at Male 11/18/2024 2:57 PM EST Legal Sex Male 4:34 AM EST Gender Identity Male 11/18/2024 2:57 PM EST Sexual Orientation Straight 11/18/2024 2: 57 PM EST Obstetrics History Last Filed Vital Signs Vital Sign Reading Time Taken Comments Blood Pressure 125/81 11/18/2024 12:10 PM EST Pulse 79 11/18/2024 12:10 PM EST Temperature 36.6 C (97.9 F) 11/18/2024 12:10 PM EST Respiratory Rate 16 11/18/2024 12:10 PM EST Oxygen Saturation 98% 11/18/2024 12:10 PM EST Inhaled Oxygen Concentration - - Weight 72.6 kg (160 lb) 11/18/2024 12:10 PM EST Height 170.2 cm (5' 7 ) 11/18/2024 12:10 PM EST Body Mass Index 25.06 11/18/2024 12:10 PM EST Plan of Treatment Health Maintenance Due Date Last Done Comments Zoster Vaccines (1 of 2) 2008 Pneumococcal Vaccine: 50+ Years (2 of 2 - PCV) 06/23/2022 06/23/2021 Cholesterol Screening (Lipid Panel) 09/30/2022 Colorectal Cancer Screening: Colonoscopy 09/30/2022 Depression Screening 09/30/2022 Hepatitis C Screening 09/30/2022 Medicare Annual Wellness Visit 09/30/2022 Social Influencers of Health Screening 09/30/2022 Hypertension/CHF/CAD Annual BMP Blood Test 10/13/2022 Falls Risk Assessment 2023 COVID-19 Vaccine ( season) 2025 08/15/2024, 08/06/2023, 07/07/2022, Additional history exists DTaP,Tdap,and Td Vaccines (2 - Td or Tdap) 06/23/2031 06/23/2021 RSV Immunization Adult Patients (1 - 1-dose 75+ series) 2033 Influenza Vaccine Completed 08/13/2024, , 07/07/2022, Additional history exists HIB Vaccines Aged Out No longer eligi ble based on patient's age to complete this topic HPV Vaccines Aged Out No longer eligi ble based on patient's age to complete this topic Hepatitis A Vaccines Aged Out No long er eligible based on patient's age to complete this topic Hepatitis B Vaccines Aged Out No long er eligible based on patient's age to complete this topic IPV Vaccines Aged Out No longer eligi ble based on patient's age to complete this topic MMR Vaccines Aged Out No longer eligi ble based on patient's age to complete this topic Meningococcal ACWY Vaccine Aged Out N o longer eligible based on patient's age to complete this topic Meningococcal B Vaccine Aged Out No l onger eligible based on patient's age to complete this topic RSV Immunization Patients Under 20 months Aged Out No longer eligible based on patient's age to complete this topic Varicella Vaccines Aged Out No longer eligible based on patient's age to complete this topic Insurance [employer] Care Teams Department Head Relationship Specialty Start Date End Date Rashard Meraz MD PCP - General Internal Medicine 09/13/21
[2025-04-27 09:50] LABS: Prostate Specific Antigen 1.89 ng/mL (<0.05-4.0)
== END 2025-04-27 08:02 | disposition home or self-care (01) ==
LOC: HO.LAB 08:01
PROVIDERS: PCP Internal Medicine; Visit Provider Urology
DX: N40.1 Benign prostatic hyperplasia with lower urinary tract symptoms (principal)
CPT/HCPCS: 36415; 84153

== ENCOUNTER 2025-05-07 08:28 | Outpatient (AMB) | payer OTHER, SELFPAY ==
--- NOTE | 2025-05-07 08:30 | A.OFFVIS_ITS ---
Intake Visit Reasons: 1y/PSA Intake Note: Patient is Present for 1y Follow Up PSA Urology Medication: Edex Injections Antibiotic Allergies:None Blood Thinners: None Allergies No Known Allergies Allergy (Verified 04/10/24 09:00) HPI Comments Details: Francisco is a pleasant male. He is a patient of Dr. Andre. He is seen for the following urologic conditions - hypogonadism - lower urinary tract symptoms progressive - erectile dysfunction Very happy with urination Had trouble with prescription. Prefers caverject from [email or web address]. 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 05/21 1.9 Appears to have recovered Lower urinary tract symptoms Progressive Previously on combination therapy with Proscar and tamsulosin Weakness of stream 01/17 bladder ultrasound with bladder wall thickening Cystoscopy with trilobar enlargement in large median lobe 07/20 [facility] Medical History Elevated cholesterol Anemia Sleep apnea Low back pain Asthma GERD (gastroesophageal reflux disease) BPH (benign prostatic hyperplasia) Tinnitus Hiatal hernia Flat foot PTSD (post-traumatic stress disorder) Surgical History Surgical history unknown Social History Are you a primary career services director to a significant other at home: No Do you presently have visiting nurse or other home services: No Patient Tobacco Use Status: Never used Tobacco Review of Systems Const Denies chills and Denies fever(s) Card Reports no additional complaints and Denies syncope Resp Denies cough GI Denies abdominal pain and Denies heartburn Reports as per HPI and Denies change in libido Neuro Denies syncope Psych Denies change in libido Endo Denies change in libido Physical Exam Const General: cooperative, healthy appearing, comfortable and no acute distress Orientation/consciousness: patient oriented x3 HEENT Face and sinus: Yes normal facial exam Mouth: moist mucous membranes Neck Neck: Yes normal visual inspection, Yes full ROM and Yes trachea midline Chest Chest palpation & inspection: normal inspection of the chest Resp Effort & Inspection: normal respiratory effort, able to speak in complete sentences and no respiratory distress GI Inspection: Yes normal to inspection Back/Spine/Pelvis Cervical Spine: normal cervical lordosis Thoracic/Lumbar Spine: thoracic and lumbar spine normal to inspection Skin General skin exam: no rashes or lesions noted Neuro General: patient oriented x3, gait normal, tone normal and moves all extremities Extrem General: Yes normal to inspection and Yes capillary refill normal Assessment & Plan Assessment & Plan (1) Erectile disorder: Code(s): N52.9 - Male erectile dysfunction, unspecified Category: Medical (2) BPH loc w urin obs/LUTS: Code(s): N40.1 - Benign prostatic hyperplasia with lower urinary tract symptoms Category: Medical Plan Twelve month follow-up Medications: Refilled Caverject Impulse (alprostadil) 10 mcg intra-cavernosal ONCE 28 days PRN 2 ea 6RF erectile dysfunction NS N52.9 - Male erectile dysfunction, unspecified Caverject Impulse (alprostadil) 10 mcg intra-cavernosal ONCE 28 days PRN 2 ea 6RF erectile dysfunction NS N52.9 - Male erectile dysfunction, unspecified Caverject Impulse (alprostadil) 10 mcg intra-cavernosal ONCE PRN 2 ea 6RF erectile dysfunction 28 days NS N52.9 - Male erectile dysfunction, unspecified Patient Instructions: This note is constructed using voice recognition software. While every effort has been made to ensure accuracy customer trainer errors may have been included. Imaging studies, laboratory and physical exam results were discussed and reviewed in detail. No major barriers to patient understanding were identified. An opportunity to ask questions regarding the treatment plan was provided. All questions were answered. The patient expressed understanding and agreement with the above treatment plan. The patient is aware they should contact our office by phone for worsening of their current condition or the appearance of new urologic symptoms. Compliance is encouraged with any medications and followup testing that is ordered. It is a privilege to participate in the urologic care of your patient. If you have any questions or concerns regarding treatment for the above conditions, or other urologic issues, please do not hesitate to contact me. The office telephone contact is [phone]. Sincerely, Dr Andrea Anguiano MD, [facility] - Urology Compassionate Specialist Care for the Genitourinary System Coding Level of Care Code Est Pt Level 3 (24734) Complex EM visit Add On G2211 Diagnoses Erectile disorder N52.9 BPH loc w urin obs/LUTS N40.1
--- OUTSIDE RECORDS SUMMARY | 2025-05-07 08:35 | XMS_ITS | Clinical Summary ---
Author Organization [facility] Address [address] [place] [address] Phone Care Team Providers Care Torpedo Worker Name Role Phone Rashard Meraz MD Primary [...] 2025 08/15/2024, 08/06/2023, 07/07/2022, Additional history exists Influenza Vaccine (#1) 2025 , 08/06/2023, 07/07/2022, Additional history exists DTaP,Tdap,and Td Vaccines (2 - Td or Tdap) 06/23/2031 06/23/2021 RSV Immunization Adult Patients (1 - 1-dose 75+ series) 2033 HIB Vaccines Aged Out No longer eligi [...] patient's age to complete this topic Insurance [facility] MEDICARE Care Teams Torpedo Worker Relationship Specialty Start Date End Date Rashard Meraz MD PCP - General Internal Medicine 09/13/21
== END 2025-05-07 09:05 | disposition home or self-care (01) ==
LOC: HO.HUSH 08:29
PROVIDERS: PCP Internal Medicine; Visit Provider Urology
DX: N52.9 Male erectile dysfunction, unspecified (principal); N40.1 Benign prostatic hyperplasia with lower urinary tract symptoms
CPT/HCPCS: 99213; G2211

== ENCOUNTER → 2025-05-07 08:28 | Outpatient (BNVA) | payer OTHER, SELFPAY | PROVIDERS: PCP Internal Medicine; Visit Provider Urology | DX: N40.1 Benign prostatic hyperplasia with lower urinary tract symptoms (principal); N52.9 Male erectile dysfunction, unspecified | CPT/HCPCS: 99212 ==